=== PATIENT | male | born 1990 | race Two or more races ===

== ENCOUNTER 2021-02-14 19:40 | Emergency (ER) | payer MEDICAID ==
[~2021-02-14] VITALS: Ht 177.8 cm; Wt 89.8 kg
[~2021-02-14 19:40] MED LIST: ALPR0.5T PO
--- NOTE | 2021-02-14 19:51 | NUR ---
PT BIBRA 839 FOR POSSIBLE SHOULDER DISLOCATION. PT ALERT AND ORIENTED X3. PRESENTS WITH A ARM SLING.
--- NOTE | 2021-02-14 19:53 | NUR ---
DR CRANE AT BEDSIDE.
--- NOTE | 2021-02-14 20:05 | NUR ---
xray at bedside.
[2021-02-14] MEDS ORDERED: HYDROCODONE/APAP 10/325MG TABLET ONE (20:13)
[2021-02-14] MEDS ORDERED: ONDANSETRON 4 MG TAB.RAPDIS ONE (20:14)
[2021-02-14] MEDS ORDERED: ONDANSETRON 4 MG TAB.RAPDIS SL ONE (20:30)
[2021-02-14] MEDS ORDERED: HYDROCODONE/APAP 10/325MG TABLET PO ONE (20:30)
[2021-02-14] MEDS ORDERED: DICL50TA7 PO (21:14)
[2021-02-14 21:30] VITALS: BP 130/77
--- NOTE | 2021-02-14 21:30 | NUR ---
Patient discharged to home in stable condition. Written and verbal after care instructions given. Patient verbalizes understanding of instruction. RX given
== END 2021-02-14 21:30 | disposition home or self-care (01) ==
LOC: ER 19:44
DX: M25.511 Pain in right shoulder (principal); F17.200 Nicotine dependence, unspecified, uncomplicated; Z79.899 Other long term (current) drug therapy
CPT/HCPCS: 73030; 99283; Q0162